=== PATIENT | female | born 1975 | race Caucasian/White ===

== ENCOUNTER → 2016-09-01 | Outpatient (CLI) | payer OTHER ==
[~2016-09-01] MED LIST: LUNE1TAB5 PO; UROCTAB2 PO
--- NOTE | 2016-09-02 01:25 | REP ---
Clinical: Nephrolithiasis. Technique: Supine views of the abdomen and pelvis. Findings: Bilateral intrarenal calculi are suspected and correlation is recommended. Ureters and bladder are incompletely evaluated due to overlying bowel gas pattern. There is no evidence for bowel obstruction. No organomegaly. Skeletal structures intact. Impression: Nephrolithiasis suggested. Incomplete evaluation of the urinary tract system. If the patient remains symptomatic consider noncontrast CT of the abdomen and pelvis for further investigation Signed by Inocente Berrios MD 09/02/2016 01:16 A
--- NOTE | 2016-09-02 02:53 | REP ---
Clinical: Nephrolithiasis. Technique: Real time estevez scale and color evaluation of the kidneys and bladder using curved array transducer. Findings: Bilateral kidneys are normal in contour, size, echogenicity, and reniform shape without hydronephrosis, cystic or renal mass lesion. No perinephric fluid collection identified. Right kidney measures 9.3 x 5.8 x 3.9 cm with suspected 8 mm calculus in the upper pole. Left kidney measures 10.7 x 4.2 x 4.7 cm with suspected 4 mm mid pole calculus. The bladder is normal in appearance without wall thickening or mass lesion and demonstrates bilateral ureteral jets. Bladder currently measuring 9.2 x 8.2 x 8.0 cm (315 ml) . Impression: Small nonobstructing intrarenal calculi suspected. No hydronephrosis. Signed by Inocente Berrios MD 09/02/2016 02:45 A
== END | disposition home or self-care (01) ==
LOC: M SMT 10:03
PROVIDERS: ATTEND Nurse Practitioner Women's Health
DX: R93.49 Abnormal radiologic findings on diagnostic imaging of other urinary organs (principal); N20.0 Calculus of kidney
CPT/HCPCS: 74000; 76770; 81001; 87086; G0463

== ENCOUNTER → 2016-09-03 | Outpatient (CLI) | payer OTHER ==
--- NOTE | 2016-09-03 11:19 | REP ---
CT STUDY OF THE ABDOMEN AND PELVIS WITHOUT IV OR ORAL CONTRAST: Renal stone protocol. HISTORY: Kidney stone. Bilateral pain. Comparison study February 24, 2016. This showed bilateral intrarenal calculi. FINDINGS: Preliminary digital manager maintenance radiograph shows an unremarkable bowel gas pattern. The lung bases are clear. The liver and the spleen are normal in size and homogeneous in texture on noncontrast axial CT images. The gallbladder has a Phrygian cap-like morphology but is otherwise unremarkable. No pancreatic abnormality is seen. No adrenal mass is observed on either side. There is no evidence of hydronephrosis on either side. No ureteral calculus is seen. No bladder calculus is noted. There is an intrarenal calculus at the upper pole of the right kidney measuring 5.5 mm. No other intrarenal calculus is noted on the right. The left kidney contains a 2 mm calculus at the interpolar level. This is the only intrarenal calculus visible in the left kidney. The previous study showed a lower pole calculus. This is not apparent. No retroperitoneal mass or adenopathy is seen. Small and large intestinal bowel loops are unremarkable. A normal appendix is seen along the right pelvic sidewall. No abdominal wall defect is seen. No bony destructive lesion is noted. IMPRESSION: There is one intrarenal calculus in each kidney. The largest is on the right measuring 5.5 mm. No hydronephrosis is seen. No other acute intra-abdominal abnormality. Signed by Jesse Duenas MD 09/03/2016 02:00 P
== END ==
LOC: M RAD 10:53
PROVIDERS: ATTEND Nurse Practitioner Family
DX: N20.0 Calculus of kidney (principal)

== ENCOUNTER → 2016-09-06 | Outpatient (CLI) | payer OTHER ==
[2016-09-06 13:46] LABS: ANION GAP 7 MEQ/L (8-16); BLOOD UREA NITROGEN 11 MG/DL (7-18); CALCIUM LEVEL 9.1 MG/DL (8.5-10.1); CARBON DIOXIDE LEVEL 29 MEQ/L (21-32); CHLORIDE LEVEL 105 MEQ/L (98-107); CREATININE FOR GFR 0.79 MG/DL (0.55-1.02); GLOMERULAR FILTRATION RATE > 60.0 (>58); GLUCOSE, FASTING 76 MG/DL (70-105); POTASSIUM SERUM 4.8 MEQ/L (3.5-5.1); SODIUM LEVEL 141 MEQ/L (136-145)
[2016-09-06 14:01] LABS: INR 0.97
[2016-09-06 14:33] LABS: MEAN CORPUSCULAR HEMOGLOBIN 31.2 pg (27.0-33.0); MEAN CORPUSCULAR HGB CONC 34.4 g/dl (32.0-36.5); MEAN CORPUSCULAR VOLUME 90.6 fl (80.0-96.0); RED CELL DISTRIBUTION WIDTH 12.8 % (11.5-14.5); WHITE BLOOD COUNT 5.9 K/mm3 (4.0-10.0)
== END ==
LOC: M SMT 10:36
PROVIDERS: ATTEND Nurse Practitioner Women's Health
DX: N20.0 Calculus of kidney (principal)
CPT/HCPCS: 36415; 80048; 85027; 85610; 85730; 87086; G0463

== ENCOUNTER → 2016-09-09 | Day surgery (SDC) | payer OTHER ==
[~2016-09-09] VITALS: Ht 162.6 cm; Wt 58.0 kg
[~2016-09-09] MED LIST changes: +LR 1,000 ML IV SCH; +MIDAZOLAM INJ 2 MG/2 ML VIAL (J2250) As Ordered ONE; +ONDANSETRON 4 MG ORAL DISINTEGRATING TAB (S0181) SL PRN; +PERCOCET 5MG/325MG TAB As Ordered ONE; +PERCOCET 5MG/325MG TAB PO PRN; +PROMETHAZINE INJ 25 MG/ML VIAL (J2550) IV PRN; +PROPOFOL 200 MG/20 ML VIAL As Ordered ONE; +fentaNYL 100 MCG/2 ML INJECTION (J3010) IV PRN
--- NOTE | 2016-09-09 12:21 | RO ---
DATE OF PROCEDURE: 09/09/2016 PREPROCEDURE DIAGNOSIS: Right kidney stone. POSTPROCEDURE DIAGNOSIS: Right kidney stone. PROCEDURE: Right Extracorporeal shock wave lithotripsy (ESWL). SURGEON: Ronald Hanna MD BLOGS MANAGER: None ANESTHESIA: Monitored anesthesia care (MAC). OPERATIVE INDICATIONS: This is a 41-year-old female who was found to have an approximately 6 mm right kidney stone. She was brought to the operating room today for the above listed procedure. DESCRIPTION OF PROCEDURE: The patient was brought to the operating room and MAC anesthesia was administered. Prophylactic antibiotics were infused. She was then placed in supine position in preparation for right sided extracorporeal shockwave lithotripsy. Shockwaves were then delivered to the kidney stone ungated. There were no arrhythmias. The stone did appear to fragment well. Fluoroscopy was utilized to monitor stone position and fragmentation throughout the procedure. After 2500 shocks, the procedure was concluded. The patient was then awakened from anesthesia and transported to the recovery room in stable condition. ESTIMATED BLOOD LOSS: 0 mL. COMPLICATIONS: None. SPECIMENS: None. PLAN: The patient will followup in the clinic in a few weeks imaging prior to assess for residual stone burden. ED
[2016-09-09 13:00] VITALS: BP 148/88
--- NOTE | 2016-09-10 02:59 | REP ---
Clinical: Nephrolithiasis for ESWL repeat. Technique: Single supine view of the abdomen and pelvis. Findings: Small right intrarenal calculi are suggested. Further evaluation of the urinary tract system is limited due to overlying bowel gas. No evidence for bowel obstruction. No organomegaly. Skeletal structures intact. Impression: Small right intrarenal calculi suggested. Signed by Inocente Berrios MD 09/10/2016 02:51 A
== END ==
LOC: M SDC 10:00
PROVIDERS: ATTEND Urology
DX: N20.0 Calculus of kidney (principal); I10 Essential (primary) hypertension
CPT/HCPCS: 50590; 74000; J0690; J2250

== ENCOUNTER → 2017-07-12 | Outpatient (CLI) | payer OTHER ==
[~2017-07-12] MED LIST changes: -LR 1,000 ML IV SCH; -MIDAZOLAM INJ 2 MG/2 ML VIAL (J2250) As Ordered ONE; -ONDANSETRON 4 MG ORAL DISINTEGRATING TAB (S0181) SL PRN; -PERCOCET 5MG/325MG TAB As Ordered ONE; -PERCOCET 5MG/325MG TAB PO PRN; -PROMETHAZINE INJ 25 MG/ML VIAL (J2550) IV PRN; -PROPOFOL 200 MG/20 ML VIAL As Ordered ONE; -fentaNYL 100 MCG/2 ML INJECTION (J3010) IV PRN
--- NOTE | 2017-07-12 09:53 | REP ---
CT ABDOMEN PELVIS WITHOUT CONTRAST: 07/12/2017 CLINICAL HISTORY: Recurrent renal stones. Recently passed a stone and now with new-onset bilateral flank pain for about a week. COMPARISON: 09/03/2016 FINDINGS: CT ABDOMEN: Renal stone protocol was utilized. The lung bases are clear. Heart is not enlarged and there is no pericardial thickening or effusion. No hiatal hernia. Liver, spleen, gallbladder, pancreas and adrenal glands are normal. Small bowel loops are intact. The colon shows no sign of colitis or diverticulitis in the abdomen proper. Lung window review of all CT slices in the abdomen and pelvis shows no perforation or free air. Lower pole of the left kidney shows a 2.5 mm nonobstructing stone. I do not see other intrarenal calcifications. There is no hydronephrosis on either side. No hydroureter on the left. Right ureter is also without dilatation and neither shows a stone. Bladder is nearly empty without stone or mass. Small bowel loops unremarkable. No perforation or free air. Bone windows are unchanged. No compression deformity of destructive lesion. Disc space narrowing at the lumbosacral junction. A few millimeters of retrolisthesis of L4-5 noted. This is all unchanged. No destruction or compression deformity. Visualized ribs are intact. 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 The sacrum, SI joints, iliac wings, acetabuli, ischia and the bilateral hips are without any acute bony finding. Bladder nearly empty without stone or mass. Uterus is absent and the vaginal cuff intact. No pelvic or adnexal mass. Distal left colon, sigmoid and rectum intact. Small bowel loops unremarkable. There is no evidence for colitis or diverticulitis. No inflammatory changes about the cecum. There are pelvic phleboliths noted on the right. I do not see ascites or mass. No ventral or inguinal hernia nor pathologic sized inguinal adenopathy. IMPRESSION: 1. There is a nonobstructing stone lower pole left kidney about 2.5 mm. A tiny punctate density in the interpolar region laterally could be a small foraminal calcification. 2. No hydronephrosis, hydroureter or right renal or bladder stone and neither ureter shows dilatation or stone. No other significant finding Signed by Julito Johnson MD 07/12/2017 08:27 P
== END ==
LOC: M RAD 08:01
PROVIDERS: ATTEND Nurse Practitioner Family
DX: N20.0 Calculus of kidney (principal)

== ENCOUNTER 2018-10-08 15:46 | Emergency (ER) | payer OTHER ==
[~2018-10-08] VITALS: Ht 162.6 cm; Wt 61.4 kg
[2018-10-08] MEDS ORDERED: LISI2.5T5 PO (15:53)
[2018-10-08] MEDS ORDERED: ACET1TAB55 PO (15:53)
[2018-10-08] MEDS ORDERED: LUNE3TAB36 PO (15:53)
[2018-10-08] MEDS ORDERED: IBUP-1022 PO (15:53)
[2018-10-08] MEDS ORDERED: diazePAM 5 MG TAB PO ONE (16:30)
--- NOTE | 2018-10-08 16:49 | REP ---
Clinical: Neck pain. Possible injury.. Technique: Axial noncontrast images from the skull base to the thoracic inlet with coronal and sagittal re-formations Findings: Normal alignment is maintained. Cervical vertebral bodies including transverse processes and spinous processes are intact and there is no evidence for acute fracture / compression injury or subluxation. Spinal canal is patent. Posterior elements are intact. Paravertebral soft tissues are normal. Impression: Age appropriate noncontrast cervical spine CT. No evidence for acute pathology or trauma/injury. Electronically Signed by Inocente Berrios MD 10/08/2018 04:41 P
--- NOTE | 2018-10-08 16:49 | REP ---
Clinical: Severe headache Comparison: none. Findings: The ventricles, sulci, and cisterns are normal in position and appearance. Winter-white differentiation is maintained. No acute intracranial hemorrhage, mass/mass effect, pathology or trauma/injury. No evidence for acute infarction. No extra-axial fluid collection. Calvarium is intact. Paranasal sinuses and mastoid air cells are clear. Impression: Normal noncontrast head CT. No evidence for acute intracranial pathology or trauma/injury. Electronically Signed by Inocente Berrios MD 10/08/2018 04:39 P
[2018-10-08] MEDS ORDERED: NAPR-50 PO (17:20)
[2018-10-08] MEDS ORDERED: ROBA500T PO (17:20)
[2018-10-08 17:27] VITALS: BP 144/72
[2018-10-08] MEDS ORDERED: NAPROXEN 250 MG TAB PO ONE (17:30)
[2018-10-08] MEDS ORDERED: METHOCARBAMOL 500 MG TAB PO ONE (17:30)
== END 2018-10-08 17:30 | disposition home or self-care (01) ==
LOC: M ED 15:46
DX: G44.209 Tension-type headache, unspecified, not intractable (principal); M54.12 Radiculopathy, cervical region; S16.1XXA Strain of muscle, fascia and tendon at neck level, initial encounter; X58.XXXA Exposure to other specified factors, initial encounter; Y92.89 Other specified places as the place of occurrence of the external cause; Z79.899 Other long term (current) drug therapy

== ENCOUNTER 2018-10-12 11:10 | Emergency (ER) | payer OTHER ==
[~2018-10-12] VITALS: Ht 162.6 cm; Wt 61.4 kg
[~2018-10-12 11:10] MED LIST changes: +ACET1TAB55 PO; +IBUP-1022 PO; +LISI2.5T5 PO; +LUNE3TAB36 PO; +NAPR-50 PO; +ROBA500T PO
[2018-10-12] MEDS ORDERED: KETOROLAC 30 MG/ML VIAL (J1885) IM ONE (13:30)
[2018-10-12] MEDS ORDERED: METOCLOPRAMIDE 10 MG TAB PO ONE (13:30)
[2018-10-12] MEDS ORDERED: PAME25CA PO (13:53)
[2018-10-12] MEDS ORDERED: IMIT50TA PO (13:53)
[2018-10-12 14:06] VITALS: BP 131/84
== END 2018-10-12 14:08 | disposition home or self-care (01) ==
LOC: M ED 11:10
DX: G44.209 Tension-type headache, unspecified, not intractable (principal); I10 Essential (primary) hypertension; J34.9 Unspecified disorder of nose and nasal sinuses; Z87.891 Personal history of nicotine dependence; Z82.49 Family history of ischemic heart disease and other diseases of the circulatory system; Z79.899 Other long term (current) drug therapy; Z79.1 Long term (current) use of non-steroidal anti-inflammatories (NSAID)
CPT/HCPCS: 96372; 99283; J1885

== ENCOUNTER → 2018-10-16 | Outpatient (CLI) | payer OTHER ==
[~2018-10-16] MED LIST changes: +IMIT50TA PO; +PAME25CA PO
[2018-10-16 12:05] LABS: BASO % 0.6 % (0.0-1.0); EOS # 0.1 10^3/uL (0.0-0.50); EOS % 1.2 % (0.0-3.0); HEMATOCRIT 45.6 % (36.0-47.0); HEMOGLOBIN 15.2 g/dl (12.0-15.5); LYMPH # 1.9 10^3/uL (1.5-4.5); LYMPH % 27.3 % (24.0-44.0); MEAN CORPUSCULAR HEMOGLOBIN 31.6 pg (27.0-33.0); MEAN CORPUSCULAR HGB CONC 33.3 g/dl (32.0-36.5); MEAN CORPUSCULAR VOLUME 94.8 fl (80.0-96.0); MONO # 0.3 10^3/uL (0.0-0.8); MONO % 4.7 % (0.0-5.0); NEUTROPHILS # 4.5 10^3/uL (1.8-7.7); NEUTROPHILS % 65.9 % (36.0-66.0); PLATELET COUNT, AUTOMATED 212 10^3/uL (150-450); RED BLOOD COUNT 4.81 10^6/uL (4.00-5.40); WHITE BLOOD COUNT 6.9 10^3/uL (4.0-10.0)
[2018-10-16 12:31] LABS: ALBUMIN 4.4 GM/DL (3.2-5.2); ALT/SGPT 23 U/L (12-78); BILIRUBIN,TOTAL 0.3 MG/DL (0.2-1.0); BLOOD UREA NITROGEN 13 MG/DL (7-18); CALCIUM LEVEL 8.6 MG/DL (8.5-10.1); CARBON DIOXIDE LEVEL 28 MEQ/L (21-32); CHLORIDE LEVEL 105 MEQ/L (98-107); CREATININE FOR GFR 0.68 MG/DL (0.55-1.30); GLOMERULAR FILTRATION RATE > 60.0 (>58); GLUCOSE, FASTING 75 MG/DL (70-100); POTASSIUM SERUM 4.6 MEQ/L (3.5-5.1); RHEUMATOID FACTOR QUANT < 10.0 IU/ML (<15.0); SODIUM LEVEL 138 MEQ/L (136-145); THYROID STIMULATING HORMONE 0.645 uIU/ML (0.358-3.740); TOTAL PROTEIN 7.2 GM/DL (6.4-8.2)
[2018-10-16 12:32] LABS: TOTAL 25(OH) VITAMIN D 34.3 NG/ML (30.0-100.0); VITAMIN B12 LEVEL 373 PG/ML
[2018-10-16 12:33] LABS: FOLATE 13.9 NG/ML
[2018-10-16 12:46] LABS: ERYTHROCYTE SEDIMENTATION RATE 1 mm/hr (0-20)
[2018-10-21 00:06] LABS: ANTI DOUBLE STRAND-DNA AB 2 IU/mL (0-9); ANTINUCLEAR ANTIBODIES DIRECT Negative (Negative); SJOGREN'S ANTI SS-A <0.2 AI (0.0-0.9); SJOGREN'S ANTI SS-B <0.2 AI (0.0-0.9); VITAMIN B6,PYRIDOXAL PHOSPHATE 3.7 ug/L (2.0-32.8); VITAMIN E(ALPHA TOCOPHEROL) 12.2 mg/L (7.0-25.1); VITAMIN E(GAMMA TOCOPHEROL) 1.5 mg/L (0.5-5.5)
== END ==
LOC: M LAB 10:32
PROVIDERS: ATTEND Psychiatry & Neurology Neurology
DX: G62.9 Polyneuropathy, unspecified (principal); R51 Headache